=== PATIENT | male | born 1995 | race Caucasian/White ===

== ENCOUNTER 2017-01-27 11:06 | Inpatient (IN) | payer BC ==
[2017-01-27] VITALS (10 sets, daily range): BP systolic 118–155; BP diastolic 60–90
[~2017-01-27] VITALS: Ht 190.5 cm; Wt 95.7 kg
--- NOTE | ~2017-01-27 | HC ---
[facility] [place] [address] CONSULTATION Name: JOSE R CASTELAN Room #: 454-P [facility] IN M.R.#: [id number] Admission: 01/27/17 Attend Phys: Renee Dominguez Discharge: Date of : 89 Report #: [id number] THIS REPORT FOR: //name// CC: JOSIAS physician/PCP Renee Dominguez DATE OF SERVICE: 01/27/2017 HISTORY OF PRESENT ILLNESS: This 21-year-old male began to experience some lower abdominal pain and discomfort in the last 24 hours. He localizes his pain to the right lower quadrant. He states it is sharp and stabbing. He was evidently seen in [facility] Emergency Department yesterday to consider possibility. So, he left. He had continuing pain today, which is more localized to the right lower quadrant. He denies nausea and vomiting. He is anorexic, although he did eat a bagel for breakfast. He has no appetite at the time of exam in the emergency department. PAST MEDICAL HISTORY: Medical illnesses: None during his childhood or youth. PAST SURGICAL HISTORY: Surgical illnesses none. ALLERGIES: No known drug allergies. FAMILY HISTORY: Parents are both healthy. SOCIAL HISTORY: Denies illicit drugs. He does not smoke cigarettes. Alcohol, occasional use of alcohol. REVIEW OF SYSTEMS: A 10-point review of systems is essentially noncontributory, except for recent change in gastrointestinal function. PHYSICAL EXAMINATION: GENERAL: Demonstrates a cooperative male who is alert, comfortably. VITAL SIGNS: He is afebrile. Vital signs are within normal limits. IV is infusing. LUNGS: Clear bilaterally. CARDIOVASCULAR: Regular rate and rhythm. ABDOMEN: Tenderness in the right lower quadrant. Negative Rovsing's sign. Positive rebound and guarding. No distention. RECTAL EXAMINATION: Not performed. NEUROLOGIC: Oriented times 3. Bilateral motor symmetry. DIAGNOSTIC DATA: CT scan is consistent with appendicitis. White blood cell count is within normal limits at the level of white blood cell count 9800 with 73% segs. [address] [address] CONSULTATION Name: JOSE R CASTELAN Room #: 454-P [facility] IN .R.#: [id number] Admission: 01/27/17 Attend Phys: Renee Dominguez Discharge: Date of : 89 Report #: [id number] DIAGNOSTIC IMPRESSION: Acute appendicitis. PLAN: IV antibiotics, laparoscopic appendectomy today. Thank you for allowing us to participate in his care. <ELECTRONICALLY SIGNED> By: Juarez Wilson MD, FACS 01/28/17 1305 [id number] Juarez Wilson MD, FACS /nt
--- NOTE | ~2017-01-27 | S ---
[facility] [place] [address] SURGICAL PATH RPT PROCEDURE Name: BRADY CASTELAN Room #: 454-P [facility] IN M.R.#: [id number] Admission: 01/27/17 Date of : 89 Discharge: 01/28/17 Report #: [id number] Path Case #: [id number] PATHOLOGY REPORT COLLECTION DATE: 01/27/2017 RECEIVED DATE: 01/30/2017 SUBMITTING PHYS: Dr. Juarez Wilson OTHER PHYS: Dr. Renee Dominguez SPECIMEN(S) RECEIVED: A.Appendix * * * * * * * * * * * * FINAL DIAGNOSIS: Appendix, appendectomy: - Marked acute appendicitis along with marked serositis. (IUV:csd; d/t: 01/31/2017) PATHOLOGIST: Sally Nguyen M.D. REPORT ELECTRONICALLY SIGNED BY: Sally Nguyen M.D. DATE/TIME: 01/31/2017 17:04 * * * * * * * * * * * * GROSS PATHOLOGY: Received in formalin labeled "Brady Castelan, appendix," is an appendix measuring 6.9 cm in length and up to 0.9 cm in diameter with a small amount of attached mesoappendix. The serosal surface is pale hollins in appearance with moderate vasculature. Sectioning reveals a pinpoint lumen. Wrapper Layer sections are submitted in cassette A1 and A2, with the proximal margin and bisected tip submitted in cassette A1. (CAA; 01/30/2017) CLINICAL HISTORY: Acute appendicitis INITIAL CPT CODE(S): A; 51465 Professional services performed by [facility] at [facility] [address] [place] [address] Technical services performed by [facility] at [address] [place] [id number]. [facility] [address] [place] [address] SURGICAL PATH RPT PROCEDURE Name: BRADY CASTELAN Room #: 454-P [facility] IN M.R.#: [id number] Admission: 01/27/17 Date of : 89 Discharge: 01/28/17 Report #: [id number] Path Case #: [id number] [facility] [id number] [address] PHONE: [phone] DIRECTOR: Thai Helton M.D. * * * END OF REPORT * * *
--- NOTE | ~2017-01-27 | O ---
[facility] [place] [address] OPERATIVE REPORT Name: JOSE R CASTELAN Room #: 454-P [facility] IN M.R.#: [id number] Admission: 01/27/17 Attend Phys: Renee Dominguez Discharge: 01/28/17 Date of : 89 Report #: [id number] THIS REPORT FOR: //name// CC: JOSIAS physician/PCP Renee Dominguez DATE OF SERVICE: 01/27/2017 PREOPERATIVE DIAGNOSIS: Acute appendicitis. POSTOPERATIVE DIAGNOSIS: Acute appendicitis, nonperforated. PROCEDURE: Laparoscopic appendectomy. SURGEON: Juarez Wilson M.D. WATER ATTENDANT: RHONDA Mina. INDICATIONS: A 21-year-old healthy male who has been sick for approximately 18-24 hours with right lower quadrant pain. CT scan is consistent with appendicitis. The patient is anorexic. OPERATIVE PROCEDURE: The patient had a thorough discussion of the procedure, benefits and risks. He gave informed consent to proceed. He was given preoperative IV antibiotics. He was brought to the operating room suite and had satisfactory induction of general endotracheal anesthesia. The patient's entire abdomen was prepped and draped in procedure with DuraPrep solution. The patient voided prior to anesthesia. After sterile prepping and draping was completed, an appropriate timeout was then performed. 0.5% plain Naropin was injected at all trocar sites. An infraumbilical open cutdown procedure was performed at the umbilicus. The 12 mm Jessica trocar was placed under direct vision. Pneumoperitoneum was established. A left lower quadrant and left lower midline 5 mm trocar ports were placed under direct vision. The appendix was in a lateral cecal position. The appendix was curled and edematous and taut at the distal one-half. A window was made in the mesoappendix. The JUSTINA laparo-endoscopic stapling device was then introduced and utilized to staple the base of the appendix. The mesoappendix was taken down and transected and controlled with the Sonicision device. After the appendix was transected from the mesoappendix, it was placed into an Endobag and removed from the peritoneal cavity. Photographs had been taken of the appendix as well as the base of the appendiceal stump. Hemostasis was complete, hemorrhage was less than 10 mL. Final inspection was completed, no other intra-abdominal pathology was noted. An 0 PDS suture was placed under direct vision at the infraumbilical port site in a [id number] manner. After final inspection, the pneumoperitoneum was deflated. The Jessica trocar removed. The 5 mm trocar ports had been removed under direct visualization. The 0 PDS suture was ligated at the infraumbilical [address] [address] OPERATIVE REPORT Name: JOSE R CASTELAN Room #: 454-P [facility] IN M.R.#: [id number] Admission: 01/27/17 Attend Phys: Renee Dominguez Discharge: 01/28/17 Date of : 89 Report #: [id number] port site. Skin margins were approximated with subcuticular 4-0 Monocryl. Dermabond was applied. Estimated blood loss was less than 10 mL. The patient tolerated procedure well and he returned to the recovery room in stable and satisfactory condition. By: [id number] Juarez Wilson MD, FACS /nt
[2017-01-27 11:41] LABS: ABSOLUTE NEUTROPHILS 7.3 thou/uL (1.4-8.2); BASOPHILS 0.4 % (0.0-2.0); EOSINOPHILS 0.6 % (0.0-3.0); HEMATOCRIT 46.7 % (42.0-52.0); LYMPHOCYTES 13.9 % (24.0-44.0); MCH 30.2 pg (26.0-34.0); MCHC 34.3 g/dL (28.0-37.0); MCV 88.1 fL (80.0-100.0); MONOCYTES 11.3 % (1.0-8.0); PLATELET COUNT 221 thou/uL (150-400); POLYS 73.8 % (36.0-66.0); RDW 13.1 % (10.5-14.5); WBC 9.8 thou/uL (4.0-11.0)
[2017-01-27 11:43] LABS: MANUAL DIFF NO
[2017-01-27 11:44] LABS: URINE BILIRUBIN NEGATIVE (Negative); URINE BLOOD NEGATIVE (Negative); URINE COLOR YELLOW; URINE GLUCOSE-RANDOM* NEGATIVE (Negative); URINE KETONES NEGATIVE (Negative); URINE LEUKOCYTES-REFLEX NEGATIVE (Negative); URINE PROTEIN (DIPSTICK) NEGATIVE (Negative); URINE SPECIFIC GRAVITY 1.015 (1.003-1.035); URINE UROBILINOGEN 0.2 E.U./dl (0.2-1.0)
[2017-01-27 11:50] LABS: CALCIUM 9.1 mg/dL (8.5-10.1); POTASSIUM 3.9 mmol/L (3.5-5.1)
[2017-01-27 11:54] LABS: ALBUMIN 4.1 g/dL (3.4-5.0); TOTAL BILIRUBIN 1.4 mg/dL (<0.1-1.0); TOTAL PROTEIN 7.1 g/dL (6.4-8.2)
[2017-01-28 00:12] VITALS: BP 128/67
[2017-01-28 03:58] VITALS: BP 127/73
[2017-01-28 04:24] LABS: HEMATOCRIT 41.2 % (42.0-52.0); MCH 30.1 pg (26.0-34.0); MCHC 33.9 g/dL (28.0-37.0); MCV 88.8 fL (80.0-100.0); RBC 4.64 mil/uL (4.50-6.00); RDW 12.7 % (10.5-14.5); WBC 7.7 thou/uL (4.0-11.0)
[2017-01-28 07:05] VITALS: BP 124/47
[2017-01-28 11:10] VITALS: BP 108/40
[2017-01-28 13:45] VITALS: BP 108/40
== END 2017-01-28 14:14 | disposition home or self-care (01) | DRG 343 ==
LOC: ER 11:06 → 4W 13:09 → EROBS 13:09 → 4W 14:05
PROVIDERS: Physician Assistant; Surgery
PROC: 0DTJ4ZZ Resection of Appendix, Percutaneous Endoscopic Approach (ICD-10-PCS; principal; 2017-01-27)
DX: K35.89 Other acute appendicitis (principal); Z84.89 Family history of other specified conditions
CPT/HCPCS: 10040; 50010; 50101; 50249; 50411; 50555; 50739; 50740; 50944; 50962; 51975; 52265; 53307; 53314; 54022; 54118; 56525; 56526; 56805; 62110; 62900; 70005